=== PATIENT | female | born 1925 | race Caucasian/White ===

== ENCOUNTER 2017-02-11 07:54 | Day surgery (SDC) | payer MEDICARE, BC ==
[2017-02-11] MEDS ORDERED: FENTANYL PF 100MCG/2ML VIAL IV ONE (15:12)
[2017-02-11] MEDS ORDERED: LIDOCAINE 2% MDV (20MG/ML) 20ML VIAL IV ONE (15:12)
[2017-02-11] MEDS ORDERED: PROPOFOL 10 MG/ML VIAL IV ONE (15:12)
--- NOTE | 2017-02-14 15:10 | Operative Note ---
DATE OF SURGERY: 02/11/2017 SURGEON: Jaelyn Syed MD OPERATION: 1. ESOPHAGOGASTRODUODENOSCOPY. 2. COLONOSCOPY. INDICATIONS: This is an 89-year-old female with a history of gastroesophageal reflux disease and history of colon cancer who presented for esophagogastroduodenoscopy and repeat colonoscopy. POSTOPERATIVE DIAGNOSES: 1. Normal esophagus. 2. Mild gastritis. 3. Normal duodenum. 4. Left-sided colonic diverticulosis. 5. Nodular colonic anastomosis. 6. Normal cecum. ANESTHESIA: Sedation is per Anesthesia. Pulse oximetry was monitored throughout the procedure to maintain O2 saturation of 90% or greater. Supplemental oxygen was administered via nasal cannula. Cardiac and vital signs were monitored throughout the duration of the procedures, and they were stable. The procedures of esophagogastroduodenoscopy and colonoscopy and risks and benefits of the procedure, including the risk of bleeding and perforation, among others, were explained to the patient who voiced understanding and desired to have the procedures done. Physical examination was performed, and the patient was found stable for sedation. PROCEDURE: The patient was placed in the left lateral position. Sedation was initiated. A plastic bite block was inserted into the oral cavity. The Olympus [id number] gastroscope was introduced into the oral cavity and advanced to the proximal esophagus without difficulty. The esophageal mucosa was carefully examined upon introduction of the gastroscope. The proximal, mid, and distal esophageal mucosa appeared normal. The gastroscope was then advanced into the stomach, and surveillance of the stomach revealed diffuse erythema along the gastric body and antrum but no ulcers were noted. The gastroscope was then advanced to the descending duodenum without difficulty. The duodenal bulb and descending duodenum appeared normal. The gastroscope was then withdrawn into the stomach and retroflexion was performed. There were no other lesions noted. The gastroscope was then withdrawn while carefully examining the gastric and esophageal mucosa. No other lesions noted. Multiple gastric biopsies were obtained. She remained with stable vital signs and was repositioned for colonoscopy. A digital rectal exam was performed and showed some mild external hemorrhoids with no palpable rectal masses. An Olympus PCF-180AL colonoscope was then inserted into the rectum under direct visualization. It was advanced to the cecum without difficulty. The ileocecal valve and appendiceal orifice were identified and photographed. The colonic mucosa was carefully examined upon introduction of the colonoscope. There was an end-to-side anastomosis in the sigmoid colon. The anastomosis appeared nodular and multiple biopsies were obtained from it. In the sigmoid colon was a 3 mm sessile polyp that was noted and was removed by cold biopsy forceps. In the rectum was also another 3 mm sessile polyp that was noted and was removed by cold biopsy forceps. The rest of the colonic mucosa appeared normal. The colonoscope was then withdrawn while carefully examining the colonic mucosal surfaces. No other lesions were noted. Retroflexion was performed and grade 1 internal hemorrhoids were noted. The colonoscope was then withdrawn and the procedures were terminated. The patient tolerated the procedure well without any immediate complications. She remained with stable vital signs and was transferred to the recovery room. RECOMMENDATIONS: 1. We will follow up on the biopsies. 2. The patient is to have a repeat colonoscopy or endoscopy as needed. Thank you for allowing me to participate in the care of your patient. Jaelyn Syed MD CC: [email or web address] [email or web address]
== END 2017-02-11 10:10 | disposition home or self-care (01) ==
LOC: HOP 07:54
PROVIDERS: ATTEND Internal Medicine Gastroenterology
DX: Z09 Encounter for follow-up examination after completed treatment for conditions other than malignant neoplasm (principal); Z85.038 Personal history of other malignant neoplasm of large intestine; K63.5 Polyp of colon; K62.1 Rectal polyp; K57.30 Diverticulosis of large intestine without perforation or abscess without bleeding; K29.60 Other gastritis without bleeding; I10 Essential (primary) hypertension
CPT/HCPCS: 45380; 43239; 00810; 88305; J3010